=== PATIENT | female | born 1985 | race Caucasian/White ===

== ENCOUNTER 2023-08-12 23:07 | Emergency (ER) | payer OTHER, SELFPAY ==
[2023-08-12 23:12] VITALS: BP 134/64
[2023-08-12 23:18] VITALS: BP 134/64; BMI 24.2
[2023-08-12 23:48] LABS: % Basophils 0.8 % (0-2); % Eosinophils 0.1 % (0-6); % Immature Granulocytes 0.2 % (0-0.5); % Lymphocytes 10.7 % (20.5-51.1); % Monocytes 3.4 % (1.7-9.3); % Neutrophils 84.8 % (42.2-75.2); Absolute Basophils 0.1 10^3/uL (0-0.2); Absolute Monocytes 0.3 10^3/uL (0.1-0.6); Absolute Neutrophils 8.1 10^3/uL (1.4-6.5); Hematocrit 34.9 % (37.0-47.0); Hemoglobin 12.2 g/dL (12.0-16.0); Mean Corpuscular Hgb 31.1 pg (27.0-31.0); Mean Platelet Volume 10.4 fL (7.4-10.4); Nucleated Red Blood Cells % 0 %; Platelet Count 268 10^3/uL (130-400); Red Blood Cell Count 3.92 10^6/uL (4.20-5.40); Red Cell Dist. Width 13.1 % (11.5-14.5); White Blood Cell Count 9.5 10^3/uL (4.8-10.8)
[2023-08-13] VITALS: BP 138/67
[2023-08-13 00:01] LABS: ALT (SGPT) 21 U/L (0-35); AST (SGOT) 24 U/L (14-36); Albumin 4.8 g/dl (3.5-5.0); Alkaline Phosphatase 56 U/L (38-126); Blood Urea Nitrogen 13 mg/dl (7-17); Calcium 9.6 mg/dl (8.4-10.2); Carbon Dioxide 25 mmol/L (22-30); Chloride 105 mmol/L (98-107); Estimated Creatinine Clearance > 125 ml/min; Glucose 123 mg/dl (70-99); Potassium 4.2 mmol/L (3.5-5.1); Sodium 135 mmol/L (135-145); Total Bilirubin 0.6 mg/dl (0.2-1.3); Total Protein 7.5 g/dl (6.3-8.2); eGFR > 60.00
--- NOTE | 2023-08-13 00:05 | ED.GENMED ---
History of Present Illness
General
Chief Complaint: Abdominal Symptoms
Source: patient
Exam Limitations: none
Time Seen by Provider: 08/12/23 23:41
Travel History
Have you had any contact with someone who has COVID-19?: No
Do you have any symptoms of coronavirus? Fever > 100 degrees, chills, cough, shortness of breath, sore throat, loss of taste or smell, muscle aches, or headache?: No
History of Present Illness
History of Present Illness:
This is a 38 year old female that comes in with c/o vomiting. States that she is from [facility] and she was coming to her sisters home. States that she has MS and she had ran out of her medication and since she was coming to [place] she had them
sent to her sisters home. States that yesterday she missed her flight and then on the way here the flight she had had Turbulence. States that this caused her to start vomiting and once she starts she can't stop. States that she has now missed 3
doses of her MS medication and her sister states that they were not delivered yet. States that she is nauseated with the vomiting, has a headache and dizziness. Denies any fever, chills, chest pain, SOB, abd pain, diarrhea, urinary burning.
Past History
Past History
ED Past Medical History: Other (Multiple sclerosis, history of Mitral valve regurge)
ED Past Surgical History: None
Social History
Tobacco: Non-smoker
Alcohol: None
Personal:
Living: with family
Review of Systems
Review of Systems
All Other Systems: ROS reviewed and negative except as documented in HPI and ROS
Constitutional: Reports no symptoms; Denies fever or chills
EENT: Reports no symptoms
Respiratory: Reports no symptoms; Denies cough or trouble breathing
Cardiac: Reports no symptoms; Denies chest pain
ABD/GI: Reports nausea and vomiting; Denies abdominal pain or diarrhea
: Reports no symptoms; Denies dysuria, frequency or urgency
Musculoskeletal: Reports no symptoms
Skin: Reports no symptoms
Neurological: Reports dizzy and headache
Psychiatric: Reports no symptoms
Phy Exam
General Physical Exam
General Presentation: well appearing and no apparent distress
General age: appears stated age
General Skin: warm and dry
General Habitus: normal
General Mental: alert
General Hydration: appears well hydrated
ENT Exam
ENT Exam: TM's normal, pharynx normal and neck supple
Eye Exam
Eye Exam: EOMI
Cardiovascular Exam
Cardiovascular Exam: regular rate/rhythm, no edema and normal peripheral pulses
Pulmonary Exam
Pulmonary Exam: lungs clear, no respiratory distress, no rales, chest non tender, no crackles, no rhonchi, no wheezing and no cough
Gastrointestinal Exam
Gastrointestinal Exam: normal bowel sounds, non tender, soft, no organomegaly, no pulsatile mass and non distended
Musculoskeletal Exam
Musculoskeletal Exam: full ROM and no edema
Skin Exam
Skin Exam: normal color, warm/dry, no rash and no petechia
Psychiatric Exam
Psychiatric Exam: normal mood/affect
Course
Orders/Labs/Results
Orders:
Orders
08/12/23 23:39
Complete Blood Count/With Diff Urgent
Comprehensive Metabolic Panel Urgent
08/13/23 00:04
0.9% Sodium Chloride 1000 ml [Nss] 1,000 ml IV BOLUS
Ondansetron Injectable [Zofran] 4 mg IV NOW STA
Abnormal Lab Results
08/12/23
23:39
RBC 3.92 L 10^6/uL
(4.20-5.40)
Hct 34.9 L %
(37.0-47.0)
MCH 31.1 H pg
(27.0-31.0)
Absolute Neuts (auto) 8.1 H 10^3/uL
(1.4-6.5)
Absolute Lymphs (auto) 1.0 L 10^3/uL
(1.2-3.4)
Neutrophils % 84.8 H %
(42.2-75.2)
Lymphocytes % 10.7 L %
(20.5-51.1)
Creatinine 0.5 L mg/dL
(0.6-1.0)
Glucose 123 H mg/dl
(70-99)
08/12/23 23:39
08/12/23 23:39
glucose nonfasting.
Vital Signs
Initial and Last Documented VS:
Initial Vital Signs
Temp Pulse Resp BP Pulse Ox
98 F 87 19 134/64 100
08/12/23 23:18 08/12/23 23:18 08/12/23 23:18 08/12/23 23:18 08/12/23 23:18
Last Documented Vital Signs
Temp Pulse Resp BP Pulse Ox
98 F 87 19 134/64 100
08/12/23 23:18 08/12/23 23:18 08/12/23 23:18 08/12/23 23:18 08/12/23 23:18
MDM/Problems Addressed
Differential Diagnosis Includes:
Nausea/Vomiting,
MDM/Problems Addressed:
This is a 38 year old female that comes in with c/o nausea and vomiting. States that she is from [place] and she had her last dose of her MS medication yesterday. States that today she came form [place] and the flight had a lot of Turbulence and she
started with vomiting. States that once she starts she can't stop.
Will check labs and give IV fluids and Zofran.
Patient states that she is feeling better and is up and dressed. Will give patient a prescription for Zofran and discharge home.
Chronic conditions affecting care:
MS
Acute Exacerbation and/or Progression of Chronic Illness:
MS
*Pulse Oximetry
Patient hypoxic: no
*EKG
Interpreted by ED Provider?: NA
Rate: EKG- N/A
*[employer] Interpretation
Rate: normal
Heart Rate: 72
Rhythm: sinus
*Critical Care Note
Total Time (30-74mins, 75-104mins- exclusive of procedures): Not Applicable
ED Attending Note
-
Portions of this chart may have been created with voice recognition software.� Occasional wrong word or��sound alike� substitutions may have occurred due to the inherent limitations of voice recognition software.
Discharge Plan
Departure
Patient Disposition: Home (Routine Discharge)
Date of Disposition: 08/13/23
Time of Disposition: :
Patient with high blood pressure during this ER visit?: Yes
Condition: Good
Covid-19: Not Applicable
Discharge Problem:
Nausea & vomiting
Instructions: Nausea and Vomiting, Adult (DC), BLOOD PRESSURE
Prescriptions:
New
ondansetron 4 mg tablet,disintegrating
4 mg PO Q8H PRN (Reason: nausea and vomiting) Qty: 7 0RF
No Action
escitalopram oxalate [Lexapro] 10 mg Tablet
10 mg PO DAILY
Vumerity 231 mg Capsule,Delayed Release(Dr/Ec)
462 mg PO BID
lorazepam 0.5 mg Tablet
0.25 mg PO DAILY PRN (Reason: anxiety)
Rx Instructions:
Take PRN for flying
Referrals:
PRIVATE,PHYSICIAN [Family Provider] -
Activity Restrictions/Additional Instructions:
Your blood work is normal. You have been given a prescription for Zofran to help with any further Nausea/vomiting. Please try and get your MS medication. IF YOU HAVE ANY OTHER CONCERNS PLEASE RETURN TO THE EMERGENCY ROOM.
Interventions
Interventions:
*Risk Screen - Suicide Last Done: 08/12/23 23:18
*General Assessment Last Done: 08/12/23 23:18
*Neglect/Abuse Screening Last Done: 08/12/23 23:18
*ED COVID-19 Vaccine History Last Done: 08/12/23 23:18
WG-Fpcphj-Fcijempksl Assessment Last Done: 08/12/23 23:18
[2023-08-13] MEDS: NSS 1000 IV (00:09)
[2023-08-13] MEDS: ZOFRAN 4 MG IV (00:10)
[2023-08-13 01:00] VITALS: BP 116/59
[2023-08-13 01:21] VITALS: BP 131/67
== END 2023-08-13 01:35 | disposition home or self-care (01) ==
LOC: EMR 23:07
PROVIDERS: Clinical Nurse Specialist Family Health; EMERGENCY PHYSICIAN Emergency Medicine
DX: R11.2 Nausea with vomiting, unspecified (principal); G35 Multiple sclerosis; Z91.148 Patient's other noncompliance with medication regimen for other reason
CPT/HCPCS: 99283; 96374; 96361; 80053; 85025